=== PATIENT | female | born 1980 | race Caucasian/White ===

== ENCOUNTER 2023-03-06 12:24 | Outpatient (CLI) | payer OTHER | END 2023-03-06 12:25 | disposition home or self-care (01) | LOC: LABBT 12:24 | PROVIDERS: ATTEND Urology | DX: Z01.818 Encounter for other preprocedural examination (principal); N28.89 Other specified disorders of kidney and ureter; K56.600 Partial intestinal obstruction, unspecified as to cause; I51.7 Cardiomegaly; D18.03 Hemangioma of intra-abdominal structures; Z82.0 Family history of epilepsy and other diseases of the nervous system | CPT/HCPCS: 71046; 93005; 93010 ==